=== PATIENT | female | born 1965 | race Caucasian/White ===

== ENCOUNTER 2024-01-31 16:19 | Emergency (ER) | payer OTHER, SELFPAY ==
[2024-01-31 16:22] VITALS: BP 145/90
--- NOTE | 2024-01-31 17:12 | ED.GENMED ---
History of Present Illness
General
Chief Complaint: Breathing Problem
Source: patient
Exam Limitations: none
Time Seen by Provider: 01/31/24 17:04
Nursing documentation reviewed up to this point in time: agreed with
History of Present Illness
History of Present Illness:
Patient to ED with complaint of fever/chills, cough, SOB, nausea. Symptoms started yesterday. Taking tylenol with temporary improvement in fever/chills. States entire family is sick. SHe tested COViD neg at home. To ED accompanied by spouses.
Past History
Past History
ED Past Medical History: COPD, HTN, Hypercholesterolemia and NIDDM
ED Past Surgical History: and Orthopedic
Social History
Tobacco: Vaping
Alcohol: Occasional
Drug: None
Personal:
Living: with family
Employment: Employed
Family History
Family History: CAD
Review of Systems
Review of Systems
Allergies reviewed?: Yes
All Other Systems: ROS reviewed and negative except as documented in HPI and ROS
Constitutional: Reports fever and chills
EENT: Reports sore throat
Respiratory: Reports cough and trouble breathing
Cardiac: Reports no symptoms
ABD/GI: Reports nausea
: Reports no symptoms
Musculoskeletal: Reports no symptoms
Skin: Reports no symptoms
Neurological: Reports no symptoms
Psychiatric: Reports no symptoms
Phy Exam
General Physical Exam
General Presentation: well appearing and mild distress
General age: appears stated age
General Skin: warm and dry
General Habitus: normal
General Mental: alert
ENT Exam
ENT Exam: EOMI, pharynx normal, neck supple, normocephalic and swallowing well
Cardiovascular Exam
Cardiovascular Exam: regular rate/rhythm
Pulmonary Exam
Pulmonary Exam: lungs clear and no respiratory distress
Cough: non productive cough
Musculoskeletal Exam
Musculoskeletal Exam: full ROM and neuro vasc intact
Skin Exam
Skin Exam: normal color, warm/dry and no rash
Psychiatric Exam
Psychiatric Exam: normal mood/affect
Scores
Heart Failure Risk
Heart Failure Risk Score: Not Applicable
Course
Orders/Labs/Results
Orders:
Orders
01/31/24 17:11
Ketorolac [Toradol] 15 mg IV NOW STA
CR Chest - 2 Views Urgent
Comment:
Reason For Exam: SOB
01/31/24 17:16
0.9% Sodium Chloride 1000 ml [Nss] 1,000 ml IV BOLUS
01/31/24 17:39
COVID-19 Antigen Urgent
Source: Nasal Swab
Complete Blood Count/With Diff Urgent
Comprehensive Metabolic Panel Urgent
Influenza A+B Rapid Molecular Urgent
JOSSE Source: Nasal Swab
Specimen Description:
01/31/24 17:40
Acetaminophen [Tylenol] 650 mg .ROUTE .STK-MED ONE
01/31/24 17:45
Rapid Strep Group A Urgent
JOSSE Source: Throat/Pharynx
Specimen Description:
Date Specimen was Collected: 01/31/24
Time Specimen was Collected: 17:18
Abnormal Lab Results
01/31/24
17:39
MCH 31.3 H pg
(27.0-31.0)
MPV 10.9 H fL
(7.4-10.4)
Absolute Monos (auto) 0.8 H 10^3/uL
(0.1-0.6)
Lymphocytes % 16.1 L %
(20.5-51.1)
Monocytes % 10.4 H %
(1.7-9.3)
Glucose 163 H mg/dl
(70-99)
AST 37 H U/L
(14-36)
ALT 43 H U/L
(0-35)
SARS-CoV-2 Antigen Positive A
(Negative)
01/31/24 17:39
01/31/24 17:39
Vital Signs
Initial and Last Documented VS:
Initial Vital Signs
Temp Pulse Resp BP Pulse Ox
101.8 F H 111 20 145/90 98
01/31/24 16:22 01/31/24 16:22 01/31/24 16:22 01/31/24 16:22 01/31/24 16:22
Last Documented Vital Signs
Temp Pulse Resp BP Pulse Ox
100.1 F 94 19 129/70 96
01/31/24 18:05 01/31/24 18:30 01/31/24 18:30 01/31/24 18:00 01/31/24 18:30
*Radiology
Radiology exam reviewed: radiology read reviewed
*Pulse Oximetry
Patient hypoxic: no
*Critical Care Note
Total Time (30-74mins, 75-104mins- exclusive of procedures): Not Applicable
ED Attending Note
-
Portions of this chart may have been created with voice recognition software.� Occasional wrong word or��sound alike� substitutions may have occurred due to the inherent limitations of voice recognition software.
Discharge Plan
Departure
Patient Disposition: Home (Routine Discharge)
Date of Disposition: 01/31/24
Time of Disposition: 18:57
Patient with high blood pressure during this ER visit?: No
Condition: Good
Covid-19: Not Applicable
Discharge Problem:
COVID-19
Instructions: COVID-19 ED, Coronavirus Home Quarantine
Prescriptions:
No Action
empagliflozin [Jardiance] 10 MG tablet
10 mg PO DAILY
benzonatate 100 MG capsule
200 mg PO TIDPRN PRN (Reason: cough) Qty: 11 0RF
metoprolol succinate 50 MG tablet extended release 24 hr
50 mg PO HS
fluoxetine 20 MG capsule
60 mg PO HS
albuterol sulfate 2.5 MG/3 ML solution for nebulization
2.5 mg inhalation R QIDPRN PRN (Reason: sob/cough)
aspirin 325 MG tablet
650 mg PO DAILYPRN PRN (Reason: fever/mild pain)
albuterol sulfate 1 PUFF HFA aerosol inhaler
2 puff inhalation R Q4HPRN PRN (Reason: sob)
prednisone 10 MG tablet
10 mg PO .TAPER Qty: 30 0RF
Rx Instructions:
Take 40mg daily x3days, 30mg daily x3days,
20mg daily x3days, 10mg daily x3days.
sucralfate 1 GRAM tablet
1 g PO QID Qty: 40 2RF
pantoprazole 40 MG tablet,delayed release (DR/EC)
40 mg PO BID Qty: 20 0RF
Referrals:
John Khan MD [Family Provider] -
Interventions
Interventions:
*Risk Screen - Suicide Last Done: 01/31/24 19:20
*General Assessment Last Done: 01/31/24 19:20
*Neglect/Abuse Screening Last Done: 01/31/24 19:20
ED- Fall Risk Assessment Last Done: 01/31/24 17:47
*ED COVID-19 Vaccine History Last Done: 01/31/24 19:20
*Nursing Disposition Last Done: 01/31/24 19:20
ED- Cardiac Assessment Last Done: 01/31/24 17:47
ED- Pulmonary Assessment Last Done: 01/31/24 17:47
Discharge Date and Time
Discharge Date/Time: 01/31/24 19:20
Print Language: [place]
[2024-01-31] MEDS: TORADOL 15 MG IV (17:42)
[2024-01-31] MEDS: NSS 1000 IV (17:42)
[2024-01-31 17:45] LABS: % Basophils 0.8 % (0-2); % Eosinophils 0.5 % (0-6); % Immature Granulocytes 0.4 % (0-0.5); % Lymphocytes 16.1 % (20.5-51.1); % Monocytes 10.4 % (1.7-9.3); % Neutrophils 71.8 % (42.2-75.2); Absolute Basophils 0.1 10^3/uL (0-0.2); Absolute Lymphocytes 1.3 10^3/uL (1.2-3.4); Absolute Monocytes 0.8 10^3/uL (0.1-0.6); Absolute Neutrophils 5.7 10^3/uL (1.4-6.5); Hematocrit 42.6 % (37.0-47.0); Hemoglobin 14.9 g/dL (12.0-16.0); Mean Corpuscular Hgb 31.3 pg (27.0-31.0); Mean Corpuscular Volume 89.5 fL (81.0-99.0); Mean Platelet Volume 10.9 fL (7.4-10.4); Nucleated Red Blood Cells % 0 %; Platelet Count 186 10^3/uL (130-400); Red Blood Cell Count 4.76 10^6/uL (4.20-5.40); Red Cell Dist. Width 13.1 % (11.5-14.5); White Blood Cell Count 7.9 10^3/uL (4.8-10.8)
[2024-01-31 17:56] LABS: COVID-19 Antigen Positive (Negative)
[2024-01-31 17:59] LABS: ALT (SGPT) 43 U/L (0-35); AST (SGOT) 37 U/L (14-36); Albumin 4.8 g/dl (3.5-5.0); Alkaline Phosphatase 83 U/L (38-126); Blood Urea Nitrogen 15 mg/dl (7-17); Calcium 9.2 mg/dl (8.4-10.2); Carbon Dioxide 25 mmol/L (22-30); Chloride 99 mmol/L (98-107); Glucose 163 mg/dl (70-99); Sodium 137 mmol/L (135-145); Total Protein 7.3 g/dl (6.3-8.2); eGFR > 60.00
[2024-01-31 18:00] VITALS: BP 129/70
== END 2024-01-31 19:20 | disposition home or self-care (01) ==
LOC: EMR 16:19
PROVIDERS: Nurse Practitioner; EMERGENCY PHYSICIAN Emergency Medicine; FAMILY PHYSICIAN Family Medicine
DX: U07.1 COVID-19 (principal); E11.9 Type 2 diabetes mellitus without complications; E78.00 Pure hypercholesterolemia, unspecified; J44.9 Chronic obstructive pulmonary disease, unspecified; F17.290 Nicotine dependence, other tobacco product, uncomplicated; I10 Essential (primary) hypertension
CPT/HCPCS: 99284; 96374; 96361; 71046; 80053; 85025; 87070; 87502; 87811; 87880